=== PATIENT | female | born 1975 | race Caucasian/White ===

== ENCOUNTER → 2024-12-30 06:49 | Outpatient (REF) | payer OTHER, SELFPAY | LOC: HWRCS 06:49 | PROVIDERS: ATTENDING PHYSICIAN Internal Medicine Cardiovascular Disease; FAMILY PHYSICIAN Family Medicine | DX: I37.0 Nonrheumatic pulmonary valve stenosis (principal) | CPT/HCPCS: 93306 ==

== ENCOUNTER 2025-01-23 06:24 | Day surgery (SDC) | payer OTHER, SELFPAY | END 2025-01-23 12:11 | disposition home or self-care (01) | LOC: GI 06:24 | PROVIDERS: ATTENDING PHYSICIAN Internal Medicine; FAMILY PHYSICIAN Family Medicine | DX: Z12.11 Encounter for screening for malignant neoplasm of colon (principal); K64.8 Other hemorrhoids | CPT/HCPCS: G0121 ==